=== PATIENT | male | born 1980 ===

== ENCOUNTER 2022-12-26 05:30 | Day surgery (SDC) | payer OTHER ==
[~2022-12-26] VITALS: Ht 188 cm; Wt 86.2 kg
== END 2022-12-26 09:30 | disposition home or self-care (01) ==
LOC: CIR.AMB 05:30
PROVIDERS: ATTEND Surgery
DX: R22.0 Localized swelling, mass and lump, head (principal); Z20.822 Contact with and (suspected) exposure to COVID-19; D17.0 Benign lipomatous neoplasm of skin and subcutaneous tissue of head, face and neck